=== PATIENT | female | born 1985 | race American Indian/Alaskan Native ===

== ENCOUNTER 2016-07-24 09:19 | Day surgery (SDC) | payer MEDICAID ==
[~2016-07-24 09:19] MED LIST: LEVAQUIN 500MG/100ML 500 MG/100 ML BAG IV SCH
[2016-07-24] MEDS ORDERED: NACL BACTERIOSTATIC INFILTRATI ONE (09:35)
--- NOTE | 2016-07-24 09:52 | Anesthesia Consultation ---
Anesthesia Consult and Med Hx Date of service: 07/24/16 - Airway Anesthetic Teeth Evaluation: Poor (missing upper and lower back molars) ROM Head & Neck: Adequate Mental/Hyoid Distance: Adequate Mallampati Class: Class II Intubation Access Assessment: Probably Good (front incisors malpositioned) - Pre-Operative Health Status ASA Pre-Surgery Classification: ASA2 Proposed Anesthetic Plan: MAC - Pulmonary Hx Smoking: No Hx Asthma: No COPD: No Hx Pneumonia: No Hx Sleep Apnea: No (DEYSI PRE SCREEN LOW RISK.) - Cardiovascular System Hx Hypertension: Yes (WITH PREG ONLY) - Central Nervous System Hx Back Pain: Yes Hx Psychiatric Problems: Yes (migraines since childhood) - Gastrointestinal Hx Gastroesophageal Reflux Disease: Yes - Endocrine Hx Renal Disease: No (stones) Hx End Stage Renal Disease: No Hx Insulin Dependent Diabetes: No Hx Hypothyroidism: Yes (RECENT DX- HAS NOT STARTED ON MEDS YET.) Hx Hyperthyroidism: No - Hematic Hx Anemia: Yes Hx Sickle Cell Disease: No - Other Systems Hx Alcohol Use: No Hx Substance Use: No Hx Cancer: No Hx Obesity: No
--- NOTE | 2016-07-24 09:53 | Anesthesia Day of Surgery ---
Anesthesia Day of Surgery - Day of Surgery Patient Examined: Yes Patient H&P Reviewed: Yes Patient is NPO: Yes
[2016-07-24] MEDS ORDERED: PEPCID IV NR (10:00)
[2016-07-24] MEDS ORDERED: LACTATED RINGERS 1,000 ML IV SCH (10:00)
[2016-07-24] MEDS ORDERED: VERSED IV NR (10:00)
[2016-07-24 10:06] LABS: Hematocrit 43.4 % (30.3-42.9)
[2016-07-24] MEDS ORDERED: DECADRON ONE (10:41)
[2016-07-24] MEDS ORDERED: SUBLIMAZE ONE (10:41)
[2016-07-24] MEDS ORDERED: ZOFRAN ONE (10:41)
[2016-07-24] MEDS ORDERED: XYLOCAINE MPF 2% ONE (10:41)
[2016-07-24] MEDS ORDERED: DIPRIVAN 10 MG/ML IV ONE (10:42)
--- NOTE | 2016-07-24 11:22 | Short Stay Summary ---
Short Stay Documentation Date of service: 07/24/16 - History H&P: obtained from office - Allergies and Medications Current Medications: Allergies ceftriaxone sodium [From Rocephin] Allergy (Verified 04/03/15 01:41) Hives Home Medications Medication Instructions Recorded Confirmed Last Taken Type Centrum Silver Tablet 1 tab PO DAILY 07/18/16 07/24/16 07/23/16 History oxyCODONE /ACETAMINOPHEN [Percocet 1 tab PO PRN PRN 07/18/16 07/24/16 07/22/16 History 5/325] Butalb/Acetamin/Caff 50-325-40 1 tab PO PRN PRN 07/24/16 07/24/16 1 Week Ago History Vit D3/Folic Acid/B2/B6/B12 1 each PO DAILY 07/24/16 07/24/16 Unknown History [Folgard Tablet] Active Medications Famotidine (Pepcid) 20 mg IV PREOP NR Stop: 07/24/16 14:00 Last Admin: 07/24/16 10:15 Dose: 20 mg Levofloxacin/Dextrose (Levaquin 500mg/100ml) 500 mg in 100 mls @ 100 mls/hr IV PREOP NOHELIA PRN Reason: Protocol Stop: 07/24/16 23:59 Lactated Ringer's (Lactated Ringers) 1,000 mls @ 75 mls/hr IV DIRECT NOHELIA Last Admin: 07/24/16 10:12 Dose: 75 mls/hr Midazolam HCl (Versed) 2 mg IV PREOP NR Stop: 07/24/16 14:00 Last Admin: 07/24/16 10:14 Dose: 2 mg - Brief post op/procedure progress note Date of procedure: 07/24/16 Pre-op diagnosis: right renal stones Post-op diagnosis: same Procedure: right renal eswl Anesthesia: GETA Findings: fair vis Surgeon: HELLEN FITCH Estimated blood loss: none Pathology: none Specimen disposition: to lab Condition: stable - Hospital course Hospital course: or pacu home - Disposition Condition at discharge: Good Disposition: DISCHARGED TO HOME OR SELFCARE Short Stay Discharge Plan Activity: advance as tolerated Diet: advance as tolerated Follow up with: HELLEN FITCH MD [Staff Physician] - 7 Days Forms: Outpatient Surgery DC Inst. Prescriptions: oxyCODONE /ACETAMINOPHEN [Percocet 5/325 mg] 1 tab PO Q4HR PRN #25 tab PRN Reason: Pain Sulfamethoxazole/Trimethoprim [Bactrim DS TAB] 1 each PO BID #10 tablet
[2016-07-24 13:57] VITALS: BP 128/85
--- NOTE | 2016-07-27 22:35 | Operative Report ---
PREOPERATIVE DIAGNOSIS: Right renal stones, lower pole and mid calyx. POSTOPERATIVE DIAGNOSIS: Right renal stones, lower pole and mid calyx. PROCEDURE: Right renal ESWL plus contrast. ANESTHESIA: General. FINDINGS: Moderate visualization. SURGEON: Corby Reynolds M.D. ESTIMATED BLOOD LOSS: None. PATHOLOGY: None. SPECIMENS: None. CLINICAL INDICATIONS: The patient was counseled RCBA, antibiotics, SCDs. The patient has a history of having left-sided ESWL, has had multiple stones in the right kidney, the largest being 7 mm involving the lower pole and mid. DESCRIPTION OF PROCEDURE: The patient was transferred to the OR suite in supine position, anesthesia begun, but prior to anesthesia, biplanar fluoroscopy was used to target the stone. We saw some areas of faint visualization of the stone correlating with the location from CT; however, to confirm we elected to go and proceed with injection of contrast to confirm within calyces. Contrast was given. We waited. Once we could visualize everything and everything correlated, additionally there was some filling, we could see the stone even with this in the mid calyx also. At this point, anesthesia begun. Biplanar fluoroscopy targeted the stone, especially looking at the lower pole and then the mid lower pole and then targeting was done approximately at 1300 shocks, unable to visualize well there, but could see the mid what appeared to be a stone at the mid calyx and shocks were delivered in this area also. A total of 2500 shocks were delivered to these areas, lower pole and mid, but stone was difficult to visualize well. At the end of the procedure, the patient was awakened and transferred to the PACU in good and stable condition. JOB# [id number] ATS/NTS
== END 2016-07-24 14:15 | disposition home or self-care (01) ==
LOC: OR 09:19
PROVIDERS: ATTEND Urology
DX: N20.0 Calculus of kidney (principal); I10 Essential (primary) hypertension; G43.909 Migraine, unspecified, not intractable, without status migrainosus; K21.9 Gastro-esophageal reflux disease without esophagitis; E03.9 Hypothyroidism, unspecified; D64.9 Anemia, unspecified; Z79.899 Other long term (current) drug therapy
CPT/HCPCS: 36415; 50590; 81025; 85014; 85018; J1100; J1956; J2250; J2405; J2704; J3010; J7120; Q9967